=== PATIENT | male | born 1945 | race Caucasian/White ===

== ENCOUNTER 2019-03-14 09:37 | Day surgery (SDC) | payer MEDICARE, BC ==
[~2019-03-14] VITALS: Ht 185.4 cm; Wt 121.1 kg
[~2019-03-14 09:37] MED LIST: ACTOS 45MG45 MG/TAB PO; ASPIRIN 81M81 MG/TA2 PO; EXFORGE HCT 101 TAB PO; FLAGYL500 MG PO; GLUCOPHAGE500 MG/TAB PO; LEVAQUIN 5500 MG/TA1 PO; NORCO 325 MG-51 TAB PO; SYNTHROID0.125 MG/T PO
[2019-03-14 10:09] VITALS: BP 137/81; PULSE 7; TEMP 98
[2019-03-14 11:40] VITALS: BP 124/73; PULSE 71; TEMP 97.7
--- NOTE | 2019-03-14 11:40 | NUR ---
The patient arrived back to [facility] from the endoscopy suite at this time. The patient appears alert and oriented and denies any pain or nausea at this time. The patient ambulated from the cart to the recliner in his room with the stand by assistance of two nurses and appeared to tolerate the activity well. Post procedure vital signs were started at this time. The patient's family is at his bedside. Call light is within reach. The patient agreed to try some grape juice. Will continue to monitor the patient.
[2019-03-14 11:55] VITALS: BP 128/75; PULSE 68
--- NOTE | 2019-03-14 11:55 | NUR ---
The patient appears to be tolerating the juice well. Vital signs appear stable. Family remains at his bedside. Will continue to monitor the patient.
[2019-03-14 12:10] VITALS: BP 117/75; PULSE 70
--- NOTE | 2019-03-14 12:10 | NUR ---
The patient appears to be resting comfortably in the recliner at this time. The patient's remains at his bedside. Call light is within reach. Will continue to monitor the patient.
[2019-03-14 12:30] VITALS: BP 128/75; PULSE 63
--- NOTE | 2019-03-14 12:30 | NUR ---
Discharge instructions were reviewe with the patient and his at this time. They both verbalized understanding and have no questions for the nurse at this time. The patient's IV to his right hand was removed and a pressure dressing was applied to the site. The nurse instructed the patient to finish getting dressed and notify the staff when he is ready to be escorted out.
--- NOTE | 2019-03-14 12:39 | NUR ---
The patient was escorted out via wheelchair to a private vehicle by WHITNEY Thompson. The patient's belongings and discharge papework were sent with him. The patient's is present to drive him home.
== END 2019-03-14 12:39 | disposition home or self-care (01) ==
LOC: SDCO 09:37
DX: K80.50 Calculus of bile duct without cholangitis or cholecystitis without obstruction (principal); K83.8 Other specified diseases of biliary tract; K31.9 Disease of stomach and duodenum, unspecified; K83.9 Disease of biliary tract, unspecified; G47.33 Obstructive sleep apnea (adult) (pediatric); I10 Essential (primary) hypertension; Z88.0 Allergy status to penicillin; E11.9 Type 2 diabetes mellitus without complications; E03.9 Hypothyroidism, unspecified; Z90.49 Acquired absence of other specified parts of digestive tract; Z79.82 Long term (current) use of aspirin
CPT/HCPCS: C1769; J2704; J7030; Q9967

== ENCOUNTER → 2021-12-20 | Outpatient (CLI) | payer MEDICARE, BC ==
[~2021-12-20] MED LIST changes: +CELEBREX 200MG200 MG PO
== END ==
LOC: MHCPAIN 14:56
DX: M47.896 Other spondylosis, lumbar region (principal); M25.552 Pain in left hip; M54.16 Radiculopathy, lumbar region; M41.26 Other idiopathic scoliosis, lumbar region
CPT/HCPCS: G0463